=== PATIENT | male | born 1975 | race Hispanic/Latino ===

== ENCOUNTER 2023-05-19 10:47 | Emergency (ER) | payer SELFPAY ==
[2023-05-19] VITALS (14 sets, daily range): BP systolic 103–138; BP diastolic 59–85
[~2023-05-19] VITALS: Ht 165.1 cm; Wt 75.0 kg
[2023-05-19 11:42] LABS: BASO% 0.4 % (0-3); EOS% 0.8 % (0-8); HEMATOCRIT 20.9 % (39.0-50.0); IMMATURE GRANULOCYTES 0.1 % (0.0-5.0); LYMPH% 13.4 % (15-41); MEAN CELL VOLUME 75.7 fL CALC (80.0-100.0); MEAN CORPUSCULAR HGB 21.7 pG CALC (26.0-32.0); MEAN CORPUSCULAR HGB CONC 28.7 g/dL CAL (32.0-36.0); MONO% 14.6 % (2-13); NEUT# 7.56 thou/uL (1.82-7.42); NEUT% 70.7 % (42-76); RED BLOOD COUNT 2.76 mill/uL (4.70-6.10); RED CELL DISTRI WIDTH 17.7 % (11.5-15.5)
[2023-05-19 11:57] LABS: ALBUMIN 3.3 g/dL (3.2-5.0); ALKALINE PHOSPHATASE 161 u/l (38-126); ANION GAP 14 (6-22 (CALC)); BUN 19 mg/dL (9-20); BUN/CREATININE RATIO 25 (12-20 (CALC)); CARBON DIOXIDE 24 mmol/l (22-30); CHLORIDE 101 mmol/l (95-108); CREATININE 0.8 mg/dL (0.7-1.3); ETHYL ALCOHOL 0 mg/dl (0-30); GFR FOR AFR.AMER. > 60 ML/MIN (>=60 (CALC)); GFR OTHER RACES > 60 ML/MIN (>=60 (CALC)); LIPASE 281 u/l (23-300); SGOT/AST 69 u/l (17-59); SODIUM 135 mmol/l (137-146); TOTAL PROTEIN 9.4 g/dL (6.3-8.2)
[2023-05-19 14:12] LABS: URINE BILIRUBIN - DIPSTICK Negative (NEGATIVE); URINE BLOOD DIPSTICK Negative (NEGATIVE); URINE COLOR Yellow; URINE GLUCOSE - DIPSTICK Negative (NEGATIVE); URINE KETONE Trace mg/dL (NEGATIVE); URINE LEUK ESTERASE Negative (NEGATIVE); URINE NITRITE - DIPSTICK Negative (Negative); URINE PROTEIN - DIPSTICK Negative (NEG-TRACE); URINE SPECIFIC GRAVITY 1.015; URINE UROBILINOGEN - DIPSTICK >=8.0 E.U./dL (0.2)
== END 2023-05-19 15:56 | disposition short-term general hospital (02) | DRG 897 ==
LOC: EDBD 10:47 → ED 10:47
PROVIDERS: Family Medicine
PROC: 05HM33Z Insertion of Infusion Device into Right Internal Jugular Vein, Percutaneous Approach (ICD-10-PCS; principal; 2023-05-19)
PROC: 30243N1 Transfusion of Nonautologous Red Blood Cells into Central Vein, Percutaneous Approach (ICD-10-PCS; 2023-05-19)
DX: F10.239 Alcohol dependence with withdrawal, unspecified (principal); D64.9 Anemia, unspecified; F10.20 Alcohol dependence, uncomplicated; Y90.0 Blood alcohol level of less than 20 mg/100 ml
CPT/HCPCS: J2354; J3475; P9016; Q9967; S0164